=== PATIENT | male | born 1970 | race Asian ===

== ENCOUNTER 2019-10-26 06:54 | Emergency (ER) | payer MEDICAID ==
[2019-10-26 07:10] VITALS: BP_SYST 136
--- NOTE | 2019-10-26 07:20 | NUR ---
Patient to ER bed 07 to gown for evaluation. Side rails up.
--- NOTE | 2019-10-26 07:22 | NUR ---
Patient arrived in the ED c/o rash on his right groin that started 2 months ago and is progressively getting worse. Denied any fevers or pain. Patient is a&o x4, respirations even and unlabored, speaking in full sentences, ambulating with a steady gait, VS WNL. Instructed to notify ED staff for worsening symptoms. Patient verbalized understanding.
--- NOTE | 2019-10-26 07:25 | NUR ---
LEN Corrales at bedside examining patient.
[2019-10-26 07:53] VITALS: BP_SYST 136
--- NOTE | 2019-10-26 07:55 | NUR ---
Patient given written and verbal discharge instructions and verbalizes understanding. ER MD discussed with patient the results and treatment provided. Patient in stable condition. ID arm band removed. Rx of Terbinafide given. Patient educated on pain management and to follow up with PMD. Pain Scale 0/10. Opportunity for questions provided and answered. Medication side effect fact sheet provided.
== END 2019-10-26 07:55 | disposition home or self-care (01) ==
LOC: SED 06:54
DX: B35.6 Tinea cruris (principal); K76.0 Fatty (change of) liver, not elsewhere classified
CPT/HCPCS: 99282

== ENCOUNTER 2020-05-09 18:22 | Emergency (ER) | payer MEDICAID ==
[~2020-05-09] VITALS: Ht 170.2 cm; Wt 95.3 kg
--- NOTE | 2020-05-09 18:22 | NUR ---
Patient to ER bed 7 to gown for evaluation. Side rails up. Report given to ARACELI Bucio.
--- NOTE | 2020-05-09 18:25 | NUR ---
pt arrives from home with c/o "erythema" to keo feet. Pt does not have any other c.o
[2020-05-09 18:31] VITALS: BP_SYST 130
--- NOTE | 2020-05-09 18:37 | NUR ---
ER at bedside examining patient.
[2020-05-09 18:54] VITALS: BP_SYST 130
--- NOTE | 2020-05-09 18:58 | NUR ---
Patient given written and verbal discharge instructions and verbalizes understanding. ER MD discussed with patient the results and treatment provided. Patient in stable condition. ID arm band removed. Rx of [place] given. Patient educated on pain management and to follow up with PMD. Pain Scale 0/10. Opportunity for questions provided and answered. Medication side effect fact sheet provided.
== END 2020-05-09 18:54 | disposition home or self-care (01) ==
LOC: SED 18:22
DX: B35.3 Tinea pedis (principal); K76.0 Fatty (change of) liver, not elsewhere classified
CPT/HCPCS: 99282

== ENCOUNTER 2020-05-14 09:52 | Emergency (ER) | payer MEDICAID ==
[~2020-05-14] VITALS: Ht 172.7 cm; Wt 72.6 kg
[2020-05-14 10:08] VITALS: BP_SYST 138
--- NOTE | 2020-05-14 10:08 | NUR ---
Patient to ER bed 5 to gown for evaluation. Side rails up. Assumed care.
--- NOTE | 2020-05-14 10:14 | NUR ---
Patient arrived via POV, AAOx4, and ambulatory with steady gait. Patient states he has a rash that is getting worse. Patient was seen on 05/09/20 and given Clotrimazole 1% and it has not provided relief. Patient states there is bleeding associated and drying. Patient has had rash x 1 month. VSS. Will continue to follow up and monitor.
--- NOTE | 2020-05-14 10:16 | NUR ---
ER at bedside examining patient.
[2020-05-14 10:43] VITALS: BP_SYST 138
--- NOTE | 2020-05-14 10:43 | NUR ---
Patient given written and verbal discharge instructions and verbalizes understanding. ER MD discussed with patient the results and treatment provided. Patient in stable condition. ID arm band removed. Rx of Lotrimin Ultra 1% given. Patient educated on pain management and to follow up with PMD. Pain Scale 3/10. Opportunity for questions provided and answered. Medication side effect fact sheet provided. Patient also instructed to get OTC foot powder to apply over cream. Patient educated that rash may take several weeks to fully resolve.
== END 2020-05-14 10:43 | disposition home or self-care (01) ==
LOC: SED 09:52
DX: B35.3 Tinea pedis (principal)
CPT/HCPCS: 99282